=== PATIENT | female | born 1990 | race Caucasian/White ===

== ENCOUNTER 2017-03-19 08:30 | Emergency (ER) | payer SELFPAY ==
[~2017-03-19] VITALS: Ht 162.6 cm; Wt 51.5 kg
[~2017-03-19 08:30] MED LIST: CIPRO500 MG PO; CLEOCIN300 MG PO
[2017-03-19 09:27] LABS: ADD MIUA? YES; BILIRUBIN NEGATIVE; BLOOD MODERATE; COLOR YELLOW ((YELLOW)); GLUCOSE (STRIP) NEGATIVE; KETONES NEGATIVE; LEUKOCYTES NEGATIVE; NITRITE NEGATIVE; PROTEIN (STRIP) NEGATIVE; UROBILINOGEN 0.2 MG/DL (0.2-1.0)
[2017-03-19 09:44] LABS: BACTERIA NONE SEEN /HPF; EPITHELIAL CELLS RARE /HPF; MUCUS TRACE /LPF; UCUL ADDED? NO; WHITE BLOOD CELLS 0-5 /HPF (0-5)
[2017-03-19 10:16] LABS: HEMATOCRIT 39.2 % (36.0-46.0); MCH 32.3 PG (29.0-34.0); MCHC 33.9 G/DL (30.0-36.0); MCV 95.1 FL (83-99); MEAN PLAT.VOLUME 10.5 uM^3 (9.5-12.4); PLATELET COUNT 269 K/uL (156-360); RBC DIS.WIDTH-CV 12.2 % (11.8-14.6); RED BLOOD COUNT 4.12 M/uL (3.80-5.20); WHITE BLOOD COUNT 7.3 K/uL (4.1-10.2)
[2017-03-19 10:25] LABS: CHLORIDE 108 mEq/L (99-109); POTASSIUM 4.5 mEq/L (3.7-5.4); SODIUM 140 mEq/L (136-147)
[2017-03-19 10:27] LABS: GLUCOSE 106 mg/dL (70-99)
[2017-03-19 10:29] LABS: ANION GAP 9 MEQ/L (2-14); TOTAL BILIRUBIN 0.6 mg/dL (0.0-1.0)
[2017-03-19 10:31] LABS: ALKALINE PHOSPHATASE 59 IU/L (3-129); GFR ESTIMATE (CALCULATED) > 59 mL/min/
[2017-03-19 10:32] LABS: UREA NITROGEN (BUN) 16 mg/dL (9-23)
[2017-03-19 10:40] LABS: QUANTITATIVE HCG < 4.0 MIU/ML
[2017-03-19] MEDS ORDERED: ZYRTEC10 M2 PO (11:02)
[2017-03-19] MEDS ORDERED: MUCUS ER600 MG PO (11:02)
[2017-03-19] MEDS ORDERED: PRILOSEC20 MG PO (11:02)
[2017-03-19] MEDS ORDERED: FLONASE16 G1 BOTH NARES (11:02)
[2017-03-19 11:22] VITALS: BP 124/95
== END 2017-03-19 11:23 | disposition home or self-care (01) ==
LOC: EME 08:30
DX: H92.01 Otalgia, right ear (principal); J30.2 Other seasonal allergic rhinitis; K29.70 Gastritis, unspecified, without bleeding; R51 Headache; F17.210 Nicotine dependence, cigarettes, uncomplicated
CPT/HCPCS: 80053; 81003; 84702; 85027; 99281; 99284

== ENCOUNTER 2017-08-11 12:49 | Emergency (ER) | payer SELFPAY ==
[~2017-08-11] VITALS: Ht 162.6 cm; Wt 48.0 kg
[~2017-08-11 12:49] MED LIST changes: +FLONASE16 G1 BOTH NARES; +MUCUS ER600 MG PO; +PRILOSEC20 MG PO; +ZYRTEC10 M2 PO
[2017-08-11 12:58] VITALS: BP 135/100
[2017-08-11] MEDS ORDERED: BUSPAR5 MG PO (15:36)
[2017-08-11] MEDS ORDERED: ATARAX,VISTARIL25 MG PO (16:51)
== END 2017-08-11 13:15 | disposition left against medical advice (07) ==
LOC: EME 12:49
DX: R51 Headache (principal); Z53.21 Procedure and treatment not carried out due to patient leaving prior to being seen by health care provider

== ENCOUNTER 2017-08-11 14:18 | Emergency (ER) | payer SELFPAY ==
[~2017-08-11] VITALS: Ht 162.6 cm; Wt 47.9 kg
[2017-08-11] MEDS ORDERED: BUSPAR5 MG PO (15:36)
[2017-08-11] MEDS ORDERED: ATARAX,VISTARIL25 MG PO (16:51)
[2017-08-11 16:55] VITALS: BP 127/103
== END 2017-08-11 17:01 | disposition home or self-care (01) ==
LOC: EME 14:18
DX: R51 Headache (principal); M54.2 Cervicalgia; R11.0 Nausea; R42 Dizziness and giddiness; F17.200 Nicotine dependence, unspecified, uncomplicated
CPT/HCPCS: 99281; 99284; J1885